=== PATIENT | female | born 1950 | race Caucasian/White ===

== ENCOUNTER → 2016-11-27 | Outpatient (CLI) | payer OTHER ==
--- NOTE | 2016-11-27 12:19 | REP ---
MRI CERVICAL SPINE WITHOUT AND WITH CONTRAST: HISTORY: Breast carcinoma. CONTRAST: ProHance 11 mL. A disc bulge is present at the C3-4 level. There is mild effacement of the thecal sac without spinal cord compression. Uncinate process hypertrophy is present on the left. This produces minimal narrowing of the left C3 neural foramen. The right C3 neural foramen is patent. A disc bulge is present at the C4-5 level. There is mild effacement of the thecal sac without spinal cord compression. Uncinate process hypertrophy is present on the left. This produces minimal narrowing of the left C4 neural foramen. The right C4 neural foramen is patent. A disc bulge with associated osteophyte formation is present at the C5-6 level. There is moderate effacement of the thecal sac without spinal cord compression. Uncinate process hypertrophy is present on the right. This produces mild narrowing of the right C5 neural foramen. The left C5 neural foramen is patent. A disc bulge is present at the C6-7 level. There is mild effacement of the thecal sac without spinal cord compression. The C6 neural foramina are patent. There is no other disc bulge or herniation. The remaining neural foramina are patent. The spinal cord is normal in signal intensity. There is no abnormal enhancement. Nerve root sleeve diverticula or perineural cysts are present at the C4-5 through C7-T1 levels. The C4-5 and C5-6 intervertebral discs are decreased in height consistent with disc degeneration. Normal signal intensity is present in the cervical vertebral bodies. IMPRESSION: There is cervical spondylosis at the C3-4 through C6-7 levels without spinal cord compression. Signed by Rell Benjamin MD 11/27/2016 12:21 P
== END ==
LOC: M PLARAD 10:28
PROVIDERS: ATTEND Physician Assistant
DX: M47.892 Other spondylosis, cervical region (principal)
CPT/HCPCS: 72156; A9576

== ENCOUNTER → 2022-07-06 | Outpatient (CLI) | payer MEDICARE, BC, OTHER ==
[~2022-07-06] MED LIST: CVS5000S2 SC; FAMO20TA PO; VITA500045 PO
== END ==
LOC: M LABSMTC 09:35
PROVIDERS: ATTEND Anesthesiology
DX: Z01.812 Encounter for preprocedural laboratory examination (principal); Z20.822 Contact with and (suspected) exposure to COVID-19

== ENCOUNTER 2022-07-10 08:04 | Day surgery (SDC) | payer MEDICARE, BC, OTHER ==
[~2022-07-10] VITALS: Ht 162.6 cm; Wt 63.5 kg
[~2022-07-10 08:04] MED LIST changes: +BSS IRRIG/VANCO(10MG)/TOBRA(5MG)/EPINEPH(1:1000-0.5CC)500ML BAG-ORONLY IR ONE; +CEFUROXIME 1MG/0.1ML INTRACAMERAL INJ As Ordered ONE; +CYCLOPENTOLATE 1% OPHTH SOLN 2 ML BTL OD SCH; +LIDOCAINE 1% 1ML PF SYRINGE (OR EYE CASES) As Ordered ONE; +LIDOCAINE 3.5 % 1ML OPHTH TOPICAL GEL OU ONE; +MIDAZOLAM INJ 2MG/2ML VIAL (J2250 PER 1MG) As Ordered ONE; +OFLOXACIN 0.3 % (OCUFLOX) OPTH SOL 5ML OD ONE; +PHENYLEPHRINE 10% OPHTH SOL 5ML OD PRN; +PHENYLEPHRINE 2.5% OPHTH SOL 2ML OD SCH; +TROPICAMIDE 1% OPHTH SOLN 15ML OD SCH
[2022-07-10 10:32] VITALS: BP 121/64
== END 2022-07-10 10:48 | disposition home or self-care (01) ==
LOC: M SDC 08:04
PROVIDERS: ATTEND Ophthalmology
DX: H25.11 Age-related nuclear cataract, right eye (principal); K21.9 Gastro-esophageal reflux disease without esophagitis; Z79.899 Other long term (current) drug therapy; Z92.21 Personal history of antineoplastic chemotherapy; Z92.3 Personal history of irradiation; Z85.3 Personal history of malignant neoplasm of breast; Z98.84 Bariatric surgery status
CPT/HCPCS: 66984; J0697; J2250; V2788